=== PATIENT | male | born 2000 | race Caucasian/White ===

== ENCOUNTER 2025-04-13 16:53 | Inpatient (IN) ==
--- NOTE | 2025-04-13 17:10 | Emergency Department Note ---
Impression & Plan Acute hypoxic respiratory failure, Multifocal pneumonia ED Provider Note NAME: GAIL SILVA AGE: 24 SEX: M : 2000 ARRIVES VIA: Ambulance INFORMANT: Patient ED PROVIDER(S): Kosta Ochoa DO CHIEF COMPLAINT: Shortness of breath HPI: Patient is a 24-year-old male with a past medical history of viral URI symptoms around [facility]. He notes he become more short of breath recently. Has gotten worse over the past couple days and specifically today. He feels like his chest is full and tight. Denies any headache or change in vision. Denies any cough or congestion. No belly pain. No nausea, vomiting, or diarrhea. No dysuria, urgency, or frequency. No other exacerbating or remitting factors. Patient denies diabetes, hypertension, hyperlipidemia, CAD, history of sudden at a young age, and smoking. No recent trips or travel. ADDITIONAL HISTORY OBTAINED: Per HPI Chronic Medical/Social Conditions Affecting Care: Per HPI PAST MEDICAL HISTORY:See Below PAST SURGICAL HISTORY:See Below FAMILY HISTORY:See Below SOCIAL HISTORY:See Below HOME MEDICATIONS:See Below ALLERGIES:See Below VITALS:See Below PHYSICAL EXAMINATION: GENERAL: Sitting up in bed, alert, slightly ill-appearing, on nasal cannula EYE EXAM: normal conjunctiva. PERRL and EOM's grossly intact. OROPHARYNX: mucous membranes are moist NECK: supple, no nuchal rigidity, no adenopathy, non-tender LUNGS: Clear to auscultation. Normal chest wall mechanics HEART: no murmurs, S1 normal and S2 normal ABDOMEN: abdomen soft, non-tender, normo-active bowel sounds, no masses, no rebound or guarding. BACK: Back is symmetrical on inspection and there is no deformity, no midline tenderness, no CVA tenderness. UPPER EXTREMITIES: upper extremities are grossly normal. LOWER EXTREMITIES: No pitting edema. NEURO EXAM: Normal sensorium, cranial nerves II-XII grossly intact, normal speech, no gross weakness of arms, no gross weakness of legs. MEDICAL DECISION MAKING: Patient is a 24-year-old male who presents ER he was found to be hypoxic. Was placed on 2 L nasal cannula. 87% on room air. Labs show mild leukocytosis at 13,000. No significant anemia. BMP with a hyponatremia 128. CMP is unremarkable. Mild transaminitis. Troponin negative. Pro-Carlo normal. UA was clean. COVID flu and RSV was negative. Chest x-ray with multifocal pneumonia. CT angio chest was obtained and confirms. Patient was given broad-spectrum IV antibiotics and IV fluids. Updated bedside. Remained on 2 L nasal cannula. Discussed case with the hospitalist for further evaluation management treatment. Consults/Care Managements Discussions: Per [facility] Triage Nursing notes reviewed. Limited review of prior medical records performed Vital Signs: reviewed and remarkable for no significant abnormalities Differential diagnosis: Differential diagnoses includes but is not limited to pneumonia, bronchitis, COPD/Asthma exacerbation, pneumothorax, pulmonary embolism, congestive heart failure, acute coronary syndrome ER treatment provided: See below Diagnostics interpreted by me include EKG and cardiac monitoring as listed below: -Cardiac Monitoring: An order was placed for continuous cardiac monitoring. The monitor shows a rate of 120 with sinus rhythm. -ECG: Sinus tachycardia rate of 116 Normal axis No PVCs QTc 455 -Laboratory studies:Interpreted by me as stated above in MDM and shown below. Imaging studies: Xrays: As interpreted by me: Portable AP upright 1 view of the chest shows no focal infiltrate CTs show: CT angio the chest shows no PEs Procedures:none Critical Care: I have personally spent 33 minutes of critical care time in the direct management of this patient. This includes bedside care, interpretation of diagnostic studies, and testing, discussion with consultants, patient, and family members, and other required patient management activities. This 33 minutes is in excess of all separately billable procedures. Past Med/Surg History Problem List Acute hypoxic respiratory failure (Acute) Multifocal pneumonia (Acute) Sepsis No significant family history No significant past surgical history Social History Smoking Status: Unknown if ever smoked Hx Alcohol Use: No Hx Substance Use: No Preferred Language: Spanish Communication Ability: Effective [place] Guide Required: No Beliefs That Will Affect Care: None Current Living Situation: Other Current Living Situation Comment: with roommates Other Information That Helps Us Care for You: No Feels Safe at Home: Yes Safety Concerns: Feels Safe At This Time Assistive Devices: None Allergies Allergies Allergy/AdvReac Type Severity Reaction Status Date / Time No Known Allergies Allergy Verified 04/13/25 18:20 Home Meds Home Medications Medication Instructions Recorded Confirmed No Known Home Medications 04/09/25 04/13/25 Results & Data (ED) Vital Signs Vital Signs - 24 hr 04/13/25 16:57 04/13/25 16:57 04/13/25 17:01 Temperature 36.4 C L Temperature Source Oral Pulse Rate 117 H 109 H Pulse Rate from SpO2 Sensor Pulse Rhythm Respiratory Rate 22 Respiratory Effort / Characteristics Spontaneous Short of Breath Spontaneous Short of Breath Respiratory Depth Normal Normal Respiratory Pattern Regular Tachypnea Blood Pressure Blood Pressure Mean Pulse Oximetry 90 Oxygen Delivery Method Room Air Oxygen Flow Rate Sepsis Recent Fever Within 48 Hours No Sepsis New/Unexplained Change in Mental Status No Sepsis Action Taken by Nursing Physician Notified 04/13/25 17:01 04/13/25 17:11 04/13/25 17:33 Temperature Temperature Source Pulse Rate 116 H 112 H 115 H Pulse Rate from SpO2 Sensor Pulse Rhythm Regular Respiratory Rate 24 25 H 29 H Respiratory Effort / Characteristics Respiratory Depth Respiratory Pattern Blood Pressure 111/83 123/84 Blood Pressure Mean 88 108 Pulse Oximetry 92 93 92 Oxygen Delivery Method Nasal Cannula Nasal Cannula Oxygen Flow Rate 4 4 Sepsis Recent Fever Within 48 Hours Sepsis New/Unexplained Change in Mental Status Sepsis Action Taken by Nursing 04/13/25 18:00 04/13/25 18:30 04/13/25 19:00 Temperature Temperature Source Pulse Rate 101 H 103 H Pulse Rate from SpO2 Sensor 104 H Pulse Rhythm Respiratory Rate 26 H 23 30 H Respiratory Effort / Characteristics Respiratory Depth Respiratory Pattern Blood Pressure 137/82 141/88 H 142/91 H Blood Pressure Mean 98 112 109 Pulse Oximetry 94 94 93 Oxygen Delivery Method Nasal Cannula Nasal Cannula Nasal Cannula Oxygen Flow Rate 4 4 4 Sepsis Recent Fever Within 48 Hours Sepsis New/Unexplained Change in Mental Status Sepsis Action Taken by Nursing Laboratory Data 04/13/25 18:30 04/13/25 17:20 Lab Results 04/13/25 04/13/25 Range/Units 17:20 18:30 WBC Cancelled 13.13 H RBC Cancelled 4.83 Hgb Cancelled 14.7 Hct Cancelled 40.4 L MCV Cancelled 83.6 MCH Cancelled 30.4 MCHC Cancelled 36.4 H RDW Std Deviation Cancelled 38.0 RDW Coeff of Erma Cancelled 12.5 Plt Count Cancelled 295 MPV Cancelled 10.6 Immature Gran % (Auto) Cancelled 2.3 Neut % (Auto) Cancelled 81.7 Lymph % (Auto) Cancelled 7.2 Scott % (Auto) Cancelled 7.5 Eos % (Auto) Cancelled 1.1 Baso % (Auto) Cancelled 0.2 Neut # (Auto) Cancelled 10.72 H Lymph # (Auto) Cancelled 0.94 L Scott # (Auto) Cancelled 0.99 H Eos # (Auto) Cancelled 0.15 Baso # (Auto) Cancelled 0.03 Immature Gran # (Auto) Cancelled 0.30 H Absolute Nucleated RBC Cancelled Nucleated RBC % (auto) Cancelled Neutrophils % (Manual) Cancelled Band Neutrophils % Cancelled Lymphocytes % (Manual) Cancelled Prolymphocyte % Cancelled Reactive Lymphs % (Man) Cancelled Monocytes % (Manual) Cancelled Eosinophils % (Manual) Cancelled Basophils % (Manual) Cancelled Metamyelocytes % (Man) Cancelled Myelocytes % (Man) Cancelled Promyelocytes % (Man) Cancelled Blast Cells % (Manual) Cancelled Plasma Cell % (Manual) Cancelled Other Cells % Cancelled Nucleated RBC % Cancelled Neutrophils # (Manual) Cancelled Band Neutrophils # Cancelled Total Absolute Neuts Cancelled Lymphocytes # (Manual) Cancelled Prolymphocyte # Cancelled Reactive Lymphs # Cancelled Total Abs Lymphocytes Cancelled Monocytes # (Manual) Cancelled Eosinophils # (Manual) Cancelled Basophils # (Manual) Cancelled Metamyelocytes # (Man) Cancelled Myelocytes # (Manual) Cancelled Promyelocytes # (Man) Cancelled Blast Cells # (Man) Cancelled Plasma Cell # (Manual) Cancelled Other Cells # Cancelled Nucleated RBCs # (Man) Cancelled Hypersegmented Neuts Cancelled Hyposegmented Neuts Cancelled Hypogranular Neuts Cancelled Large Granular Lymphs Cancelled # Lrg Granular Lymphs Cancelled Hairy Cells Cancelled Smudge Cells Cancelled Toxic Granulation Cancelled Toxic Vacuolation Cancelled Dohle Bodies Cancelled Jennifer Rods Cancelled Platelet Estimate Cancelled Hypogranular Platelets Cancelled Giant Platelets Cancelled Platelet Satelliting Cancelled RBC Morphology Cancelled Polychromasia Cancelled Hypochromasia Cancelled Poikilocytosis Cancelled Basophilic Stippling Cancelled Anisocytosis Cancelled Microcytosis Cancelled Macrocytosis Cancelled Spherocytes Cancelled Pappenheimer Bodies Cancelled Sickle Cells Cancelled Target Cells Cancelled Tear Drop Cells Cancelled Ovalocytes Cancelled Stomatocytes Cancelled [place] Bodies Cancelled Echinocytes Cancelled Acanthocytes (Spur) Cancelled Rouleaux Cancelled RBC Agglutinates Cancelled Schistocytes Cancelled Sezary Cell Cancelled Sodium 128 L (136-145) mmol/L Potassium 3.9 (3.5-5.1) mmol/L Chloride 89 L (98-107) mmol/L Carbon Dioxide 22 (21-32) mmol/L Anion Gap 17 H (3-11) BUN 8 (6-23) mg/dl Creatinine 0.63 (0.6-1.4) mg/dl Est Cr Clr Drug Dosing 216.1 ml/min eGFR 136.22 BUN/Creatinine Ratio 12.7 (10-20) Glucose 98 (70-99(Fasting)) mg/dl Osmolality 273 L (280-300) mOsm/kg Lactate 1.3 (0.4-2.0) mmol/L Calcium 9.0 (8.6-10.3) mg/dl Total Bilirubin 1.0 (0.2-1.0) mg/dl AST 90 H (13-39) U/L ALT 121 H (7-52) U/L Alkaline Phosphatase 82 (34-104) U/L Troponin I High Sens 7.7 (0-20) pg/ml Total Protein 8.0 (6.0-8.3) gm/dl Albumin 3.7 (3.4-5.0) gm/dl Globulin 4.3 H (2.5-4.0) gm/dl Albumin/Globulin Ratio 0.9 (0.9-2) Lipase 47 (11-82) U/L Procalcitonin 0.12 (0-0.5) ng/ml SARS-CoV-2 (PCR) NEGATIVE (Negative) Influenza Type A (PCR) Negative (Neg) Influenza Type B (PCR) Negative (Neg) RSV (RT-PCR) Negative (Neg) Blood Parasites ID Cancelled Administered Medications Guaifenesin (Guaifenesin 600 Mg Tabcr) 600 mg PO Q12 [facility] Stop: 05/13/25 21:07 Last Admin: 04/13/25 21:23 Dose: 600 mg Documented By: DLR Lactated Ringer's (Lr) 1,000 mls @ 80 mls/hr IV .[id number] [facility] Stop: 04/14/25 22:07 Last Admin: 12/06/25 21:21 Dose: 80 mls/hr Documented By: DLR Discontinued Medications Sodium Chloride (Nss) 1,000 mls @ 999 mls/hr IV .Q1H1M ONE Stop: 04/13/25 18:05 Last Infusion: 04/13/25 19:20 Dose: Infused Documented By: Admin: 04/13/25 17:32 Dose: 999 mls/hr Documented By: CHERRI Ceftriaxone Sodium (Rocephin) 2,000 mg in 50 mls @ 100 mls/hr IV NOW STA Stop: 04/13/25 17:52 Last Infusion: 04/13/25 19:19 Dose: Infused Documented By: Admin: 04/13/25 18:56 Dose: 100 mls/hr Documented By: RONNIE Azithromycin (Zithromax) 500 mg in 255 mls @ 127.5 mls/hr IV NOW ONE Stop: 04/13/25 19:22 Last Infusion: 04/13/25 22:47 Dose: Infused Documented By: Admin: 04/13/25 19:46 Dose: 127.5 mls/hr Documented By: CAROLINA Parenteral Electrolytes (Plasma-Lyte A Ph 7.4) 1,000 mls @ 999 mls/hr IV .Q1H1M ONE Stop: 04/13/25 18:59 Last Infusion: 04/13/25 20:29 Dose: Infused Documented By: Admin: 04/13/25 19:19 Dose: 999 mls/hr Documented By: ECS Sodium Chloride (Nss) 1,000 mls @ 250 mls/hr IV .Q4H ONE Stop: 04/13/25 23:26 Last Admin: 04/13/25 19:46 Dose: Not Given Documented By: CAROLINA Ioversol (Optiray 320 125ml) 118 ml IV ONCE ONE Stop: 04/13/25 17:46 Last Admin: 04/13/25 17:45 Dose: 118 ml Documented By: DELFIN Imaging Data Radiologist's Impression: Chest CTA 04/13/25 17:05 CT pulmonary angiogram with IV contrast History: Chest pain COMPARISON: None TECHNIQUE: CT angiography of the chest was performed without IV contrast followed by IV contrast, including 3D post processing CTA image reconstruction. Dose reduction techniques were achieved by using automatic exposure control and/or adjustment of mA and/or kV according to patient size and/or use of iterative reconstruction technique. FINDINGS: Diagnostic quality: Adequate There is no evidence for pulmonary embolism. The heart is not enlarged. There is no pericardial effusion. The central tracheobronchial tree is clear. Left lower lobe consolidation. Multifocal centrilobular nodules throughout the lungs elsewhere noted. Reactive mediastinal and bilateral hilar lymphadenopathy, left greater than right. Limited visualized upper abdomen. No destructive osseous changes are seen. IMPRESSION: No evidence for pulmonary embolism. Multifocal pneumonia. Electronically signed by Mahad Keller 04-13-2025 6:35 PM Chest X-Ray 04/13/25 17:05 Chest radiograph, one view History: Chest pain Comparison: None Findings: Single AP view of the chest performed. Patchy consolidative opacity throughout the left lower and left mid lung. Some subtle nodular opacity and bronchial wall thickening also seen in the right upper lung. No pneumothorax. The cardiomediastinal silhouette is within normal limits. Normal pulmonary vascularity. No evidence for lymphadenopathy. No visualized bony or soft tissue abnormality. Impression: Multifocal pneumonia. Electronically signed by Mahad Keller 04-13-2025 5:33 PM Discharge Plan Visit Data Chief Complaint: Shortness of Breath/Dyspnea Stated Complaint: SOB, ED Provider: Kosta Ochoa Discharge Problem: Acute hypoxic respiratory failure, Multifocal pneumonia Patient Disposition: Admitted As Inpatient Condition: Serious Discharge Instructions Interventions: ED Discharge Assessment Last Done: 04/13/25 21:00
[2025-04-13] MEDS: SODIUM CHLORIDE 0.9% 1,000 ML IV ONE ×2 (17:32→19:46)
--- NOTE | 2025-04-13 17:33 | XRay Report ---
Chest radiograph, one view History: Chest pain Comparison: None Findings: Single AP view of the chest performed. Patchy consolidative opacity throughout the left lower and left mid lung. Some subtle nodular opacity and bronchial wall thickening also seen in the right upper lung. No pneumothorax. The cardiomediastinal silhouette is within normal limits. Normal pulmonary vascularity. No evidence for lymphadenopathy. No visualized bony or soft tissue abnormality. Impression: Multifocal pneumonia. Electronically signed by Mhaad Keller 04-13-2025 5:33 PM
[2025-04-13] MEDS: OPTIRAY 320 125ml IV ONE (17:45)
--- NOTE | 2025-04-13 18:12 | History & Physical Report ---
Date of Service April 13, 2025 Assessment & Plan (1) Sepsis: (2) Multifocal pneumonia: Plan: Sepsis Multifocal pneumonia Hypoxia due to above --Chest CTA:No evidence for pulmonary embolism. Multifocal pneumonia. -- Serology negative for COVID-19, influenza, RSV --Normal lactate levels --Procalcitonin level pending -- BioFire pending -- Obtain blood cultures, sputum cultures -- Start on IV Rocephin, azithromycin -- IV fluids -- Check urine for Legionella Nebs as needed Hyponatremia Likely due to dehydration Obtain urine, serum sodium, urine osmolality Monitor sodium levels closely Continue IV fluids Sinus tachycardia Physiological Monitor DVT Px: SCDs for now CODE STATUS Full code I personally interviewed and examined the patient at bedside. Personally reviewed blood work and imaging studies and discussed with the ED physician. I spent a total [id number] coordinating, documenting, and providing care for this patient. History of Present Illness Chief Complaint: Cough, Shortness of breath Primary Care Provider: NO PCP Patient is a 24-year-old male with no significant past medical history, currently not on any medications presents with history of worsening generalized weakness, cough, dyspnea since evening. Patient states that he noticed to have generalized weakness associated with fever and chills on day of and gradually got worse from then. Patient reports poor sleep. He admits to have known expectorant cough associated with dyspnea both at rest and on exertion associated with palpitations. He also admits to have some dizziness. Denies any history of chest pain, pedal edema, diaphoresis, hemop tysis, headache, nausea, vomiting, abdominal pain, blood in stools, diarrhea, dysuria, hematuria, sick contact. Allergies Allergy/AdvReac Type Severity Reaction Status Date / Time No Known Allergies Allergy Verified 04/13/25 18:20 Home Medications Medication Instructions Recorded Confirmed Type No Known Home Medications 04/09/25 04/13/25 History Past Med/Surg History Problem List Multifocal pneumonia Sepsis No significant family history No significant past surgical history Social History Smoking Status: Never smoker Hx Alcohol Use: No Hx Substance Use: No Feels Safe at Home: Yes Review of Systems Review of Systems: All systems reviewed & are unremarkable except as noted in Subjective Physical Exam Physical Exam: Physical Exam: Vitals signs as noted above General Appearance:Moderately built and nourished, no apparent distress Head: normocephalic, Atraumatic Eyes: normal inspection, EOMI Neck: supple, Trachea midline Respiratory/Chest: Decreased breath sounds, CTA, No accessory muscle use, tachypnea Cardiovascular: S1, S2, No murmur, tachycardia Abdomen/GI:Soft, Non tender, Bowel sounds present Extremities/Musculoskeletal:normal inspection, no edema Neurologic/Psych:AAOX3, grossly no focal neurological deficits Skin: normal color, warm Results & Data Results & Data Vital Signs (Past 12 Hours) Vital Signs Temp Pulse Resp Pulse Ox O2 Del Method O2 Flow Rate 04/13/25 17:11 112 H 25 H 93 Nasal Cannula 4 04/13/25 17:01 109 H 04/13/25 16:57 36.4 C L 117 H 22 90 Room Air Laboratory Results Short CBC 04/13/25 04/13/25 Range/Units 17:20 18:30 WBC Cancelled 13.13 H Hgb Cancelled 14.7 Hct Cancelled 40.4 L Plt Count Cancelled 295 BMP 04/13/25 17:20 Sodium 128 L Potassium 3.9 Chloride 89 L Carbon Dioxide 22 BUN 8 Creatinine 0.63 Glucose 98 Calcium 9.0 Liver Function 04/13/25 Range/Units 17:20 Total Bilirubin 1.0 (0.2-1.0) mg/dl AST 90 H (13-39) U/L ALT 121 H (7-52) U/L Alkaline Phosphatase 82 (34-104) U/L Albumin 3.7 (3.4-5.0) gm/dl Diagnostic Findings --Chest CTA: No evidence for pulmonary embolism. Multifocal pneumonia. ECG Additional Comments: --EKG: Sinus tachycardia, possible left atrial enlargement, QTc 455.
--- NOTE | 2025-04-13 18:36 | CT Scan Report ---
CT pulmonary angiogram with IV contrast History: Chest pain COMPARISON: None TECHNIQUE: CT angiography of the chest was performed without IV contrast followed by IV contrast, including 3D post processing CTA image reconstruction. Dose reduction techniques were achieved by using automatic exposure control and/or adjustment of mA and/or kV according to patient size and/or use of iterative reconstruction technique. FINDINGS: Diagnostic quality: Adequate There is no evidence for pulmonary embolism. The heart is not enlarged. There is no pericardial effusion. The central tracheobronchial tree is clear. Left lower lobe consolidation. Multifocal centrilobular nodules throughout the lungs elsewhere noted. Reactive mediastinal and bilateral hilar lymphadenopathy, left greater than right. Limited visualized upper abdomen. No destructive osseous changes are seen. IMPRESSION: No evidence for pulmonary embolism. Multifocal pneumonia. Electronically signed by Mahad Keller 04-13-2025 6:35 PM
[2025-04-13 18:51] LABS: Hematocrit (blood only) 40.4 % (42.0-52.0); Hemoglobin 14.7 g/dL (14.0-18.0); Immature Granulocytes # (auto) 0.30 K/uL (0.01-0.20); Immature Granulocytes % (auto) 2.3 %; Mean Corpuscular Hemoglobin 30.4 pg (25.0-34.0); Mean Corpuscular Volume 83.6 fL (80.0-100.0); Platelet Count 295 K/uL (130-400); RDW Standard Deviation 38.0 fL (36.4-46.3); Red Blood Count 4.83 M/uL (4.70-6.10); White Blood Count 13.13 K/ul (4.8-10.8)
[2025-04-13] MEDS: cefTRIAXone SODIUM 2,000 MG/50 ML BAG IV STA (18:56)
[2025-04-13] MEDS: PLASMA-LYTE A 1,000 ML IV ONE (19:19)
[2025-04-13] MEDS: AZITHROMYCIN 500 MG/255 ML BAG IV ONE (19:46)
[2025-04-13 19:54] LABS: Influenza A virus by PCR Negative (Neg); Influenza B virus by PCR Negative (Neg); SARS CoV2 RNA(COVID-19) Ceph NEGATIVE (Negative)
[2025-04-13 20:12] LABS: Albumin Level 3.7 gm/dl (3.4-5.0); Anion Gap 17.0 (3-11); Bilirubin,Total 1.0 mg/dl (0.2-1.0); Calcium 9.0 mg/dl (8.6-10.3); Carbon Dioxide 22.0 mmol/L (21-32); Chloride 89.0 mmol/L (98-107); Potassium 3.9 mmol/L (3.5-5.1); Sodium 128.0 mmol/L (136-145)
[2025-04-13 20:18] LABS: Alanine Aminotransferase 121.0 U/L (7-52); Albumin Globulin Ratio 0.9 (0.9-2); Alkaline Phosphatase 82.0 U/L (34-104); Blood Urea Nitrogen 8.0 mg/dl (6-23); Creatinine Clr Calc Pharmacy 216.1 ml/min; Globulin 4.3 gm/dl (2.5-4.0); Glucose 98.0 mg/dl (70-99(Fasting)); Lipase 47.0 U/L (11-82); Total Protein 8.0 gm/dl (6.0-8.3)
[2025-04-13] MEDS ORDERED: POLYETHYLENE (MIRALAX) 17 GM PACK PO PRN (21:08)
[2025-04-13] MEDS ORDERED: ACETAMINOPHEN 325 MG TAB PO PRN (21:08)
[2025-04-13] MEDS ORDERED: LEVALBUTEROL HCL 0.63 MG/3 ML NEB NEB PRN (21:08)
[2025-04-13] MEDS ORDERED: ONDANSETRON INJ 2 MG/ML 2 ML VIAL IV PRN (21:08)
[2025-04-13] MEDS: LACTATED RINGER'S 1,000 ML IV SCH (21:21)
[2025-04-13] MEDS: guaiFENesin 600 MG TABCR PO SCH (21:23)
[2025-04-13 23:28] LABS: Appearance Urine Clear (Clear); Bacteria Urine Automated None Seen (None Seen); Cast Urine Automated 0-2 /lpf (0-2); Epithelial Cell Urine Auto 0-2 /hpf (0-2); Glucose Urine UA Negative (Negative); WBC Urine Automated 0-5 /hpf (0-5)
[2025-04-14] MEDS: MELATONIN 3 MG TAB PO PRN (01:50)
[2025-04-14 06:20] LABS: Hematocrit (blood only) 38.2 % (42.0-52.0); Hemoglobin 13.3 g/dL (14.0-18.0); Mean Corpuscular Hemoglobin 29.4 pg (25.0-34.0); Mean Corpuscular Volume 84.5 fL (80.0-100.0); Platelet Count 294 K/uL (130-400); RDW Standard Deviation 38.5 fL (36.4-46.3); Red Blood Count 4.52 M/uL (4.70-6.10); White Blood Count 12.57 K/ul (4.8-10.8)
[2025-04-14 06:38] LABS: Alanine Aminotransferase 90.0 U/L (7-52); Albumin Globulin Ratio 1.0 (0.9-2); Albumin Level 3.1 gm/dl (3.4-5.0); Alkaline Phosphatase 63.0 U/L (34-104); Anion Gap 9.0 (3-11); Bilirubin,Total 0.8 mg/dl (0.2-1.0); Blood Urea Nitrogen 6.0 mg/dl (6-23); Calcium 7.9 mg/dl (8.6-10.3); Carbon Dioxide 26.0 mmol/L (21-32); Chloride 96.0 mmol/L (98-107); Creatinine Clr Calc Pharmacy 279.7 ml/min; Globulin 3.0 gm/dl (2.5-4.0); Glucose 105.0 mg/dl (70-99(Fasting)); Magnesium 2.2 mg/dl (1.7-2.4); Potassium 3.9 mmol/L (3.5-5.1); Sodium 131.0 mmol/L (136-145); Total Protein 6.1 gm/dl (6.0-8.3)
--- NOTE | 2025-04-14 08:41 | Pulmonary Consultation ---
Date of Consultation April 14, 2025 Assessment & Plan (1) Acute hypoxic respiratory failure: (2) Mycoplasma pneumonia: Plan Patient has multifocal pneumonia. Mycoplasma pneumonia detected on BioFire. Patient has been initiated on azithromycin and Rocephin. Given the severity of the pneumonia I would recommend continuing azithromycin. Can continue Rocephin or switch to Augmentin to complete total of 5 days of therapy. Continue oxygen therapy, wean as tolerated keep saturation approximately 90%. Recommend pulmonary toilet, head of bed elevated. Patient is tolerating diet well, can stop IV fluids. Recommend follow-up imaging in the outpatient setting in 6 to 8 weeks with x- ray. Patient may follow-up with pulmonary if desired in the outpatient setting in approximately 4 weeks. Thank you for this consult. Pulmonary will sign off at this time. Please call directly with any questions. History of Present Illness Reason for Consultation: Multifocal pneumonia Requesting Physician: Will Andrew MD Attending Physician: Will Andrew MD History of Present Illness Patient is a 24-year-old male with no significant past medical history. The patient presented to the emergency department 04/13/2025 with worsening weakness, cough and dyspnea that had started around Thanksgiving time. The patient initially had fevers and chills along with weakness which has progressed since the onset of his symptoms. He endorsed a cough and dyspnea along with palpitations. Also endorsed some dizziness. No known sick contacts. He is a lifetime non-smoker. Labs on presentation showed mild leukocytosis at 13. Sodium was low at 128. Mild transaminitis with AST 90 and ALT 121. Respiratory viral PCR was negative for COVID, influenza A/B and RSV. Legionella urine antigen is pending. BioFire is pending. The patient was noted to have elevated anion gap at 17 along with 2+ ketones in his urine. His glucose was 98. Lactic was normal. Sputum sample was sent which is showing gram-positive cocci and bacilli on Gram stain. Imaging of the chest with x-ray was obtained which showed a left sided infiltrate in the mid and lower lung zones as well as subtle nodular opacities on the right. Imaging of the chest with CT PE shows a dense pneumonia in the left lower lobe with additional patchy nodular GGO's and tree-in-bud densities bilaterally along with reactive lymphadenopathy. No PE was identified. Patient was started on azithromycin and Rocephin along with bronchodilators. Pulmonary has been consulted for multifocal pneumonia. The patient states that he attended family [place], he arrived a few days earlier for [place] and was feeling well at that time. On [place] he started having some fevers which resolved but then he started developing shortness of breath, chest heaviness, nonproductive cough and overall malaise and weakness. The patient went to express care but was not prescribed any antibiotics. He denies any known sick contacts he says that no one else was sick at [facility] or has become sick he was at [facility]. He lives with 2 roommates, neither of them have been sick. He works at a [employer], no one at work has been sick and he is not aware of sick contacts. He denies any recent travel, he traveled to [facility] in 2018 and was there for 1 week but no other foreign travel. Lives in a house with central air, has lived in the same home since December with 2 roommates. He does not smoke or vape. There are no pets in his home. There or 2 dogs in his family home with [place] but no other birds or pets. Allergies Allergy/AdvReac Type Severity Reaction Status Date / Time No Known Allergies Allergy Verified 04/13/25 18:20 Home Medications Medication Instructions Recorded Confirmed Type No Known Home Medications 04/09/25 04/13/25 History Patient History Social History Smoking Status: Unknown if ever smoked Hx Alcohol Use: No Hx Substance Use: No Preferred Language: Syriac Communication Ability: Effective Mail Manager Required: No Beliefs That Will Affect Care: None Current Living Situation: Other Current Living Situation Comment: with roommates Other Information That Helps Us Care for You: No Feels Safe at Home: Yes Safety Concerns: Feels Safe At This Time Assistive Devices: None Review of Systems Review of Systems: A 12 point review of systems was obtained in detail. Negative except as noted in HPI. Physical Exam Physical Exam: Physical examination: General: Well-appearing, well-nourished and not in acute distress. HEENT: Normocephalic, atraumatic. Extraocular movements intact. Sclera are nonicteric. No JVD appreciated. Skin: Warm and dry. No rashes appreciated. No jaundice appreciated. Cardiovascular: Heart is a regular rate and rhythm, no murmurs appreciated on my exam. No significant lower extremity edema. Lungs: Coarse breath sounds, no wheezing, on nasal cannula, diminished at left base. Rhonchi appreciated left. Abdomen: Nondistended, nontender to palpation. No masses appreciated. Musculoskeletal: Normal muscle mass and tone. No gross joint deformity abnormalities. No effusions appreciated. Neurologic: Awake and alert, oriented. CN II through XII are grossly intact. Speech is fluent. Nonfocal exam. Psychiatric: Appropriate cooperative during my exam. Results & Data Results & Data Vital Signs (Past 12 Hours) Vital Signs Temp Pulse Pulse Pulse Resp BP Pulse Ox 04/14/25 07: 36.8 C 99 H 21 123/78 95 04/14/25 07:00 104 H 04/14/25 03:43 37.8 C H 102 H 24 125/75 95 04/13/25 23:39 135 H 04/13/25 23:16 37.7 C H 108 H 19 114/63 92 04/13/25 22:00 04/13/25 21:10 36.9 C 119 H 18 106/64 91 04/13/25 21:00 O2 Del Method O2 Flow Rate 04/14/25 07:25 Nasal Cannula 4 04/14/25 07:00 04/14/25 03:43 Nasal Cannula 4 04/13/25 23:39 04/13/25 23:16 Nasal Cannula 4 04/13/25 22:00 Nasal Cannula 3 04/13/25 21:10 Nasal Cannula 3 04/13/25 21:00 Nasal Cannula 4 Laboratory Results Significant hyponatremia and leukocytosis. Procalcitonin is low. Negative for influenza, RSV and COVID. Diagnostic Findings Chest x-ray and CT imaging reviewed independently by myself. There is a very dense left lower lobe pneumonia. Bilateral centrilobular nodular infiltrates and GGO's with tree-in-bud changes bilaterally. PG Care Time/CCT Total # of Minutes Spent Total Time Spent with Patient: Total time spent is greater than 50% in coordination of care (as documented) at patient's floor/unit and/or counseling patient: [place] [address] IN/OBS CONSULT LVL 4,60M Patient Type New Medical Decision Making Moderate Complexity Diagnoses Acute hypoxic respiratory failure J96.01 Mycoplasma pneumonia J15.7
[2025-04-14] MEDS ORDERED: AZITHROMYCIN 250 MG TAB PO SCH (09:00)
[2025-04-14] MEDS: AZITHROMYCIN 250 MG TAB PO SCH (09:09)
[2025-04-14 09:15] LABS: Chlamydia pneumoniae PCR Not Detected (NotDetected); Coronavirus 229E PCR Not Detected (NotDetected); Coronavirus CoV-2 (COVID19)PCR Not Detected (NotDetected); Coronavirus HKU1 PCR Not Detected (NotDetected); Coronavirus NL63 PCR Not Detected (NotDetected); Coronavirus OC43PCR Not Detected (NotDetected); Human Metapneumovirus PCR Not Detected (NotDetected); Parainfluenza Virus 1 PCR Not Detected (NotDetected); Parainfluenza Virus 2 PCR Not Detected (NotDetected); Parainfluenza Virus 3 PCR Not Detected (NotDetected); Parainfluenza Virus 4 PCR Not Detected (NotDetected); Respiratory Syncytial VirusPCR Not Detected (NotDetected); Rhinovirus/Enterovirus PCR Not Detected (NotDetected)
--- NOTE | 2025-04-14 10:22 | Hospitalist Progress Note ---
Date of Service April 14, 2025 Assessment & Plan (1) Sepsis: (2) Multifocal pneumonia: Plan: Multifocal pneumonia Mycoplasma pneumoniae infection Acute hypoxic respiratory failure Patient presents with fever, shortness of breath ongoing for a week. CTA chest shows multifocal pneumonia; no PE Respiratory viral panel positive for mycoplasma pneumonia this morning Continue on ceftriaxone and azithromycin Wean oxygen as tolerated Bronchodilators as needed pulm is consulted for any further recommendation Hyponatremia Serum sodium of 128 on admission; Improved to 131 with IV hydration Urine osmolarity of 273, urine sodium of 26 Continue IV fluids for now Monitor BMP daily DVT Px: SCDs for now CODE STATUS Full code Time spent evaluating patient, direct bedside care, chart review, placing orders, interpretation of diagnostic studies, discussion with consultants, patient, and family members, as well as other required patient management activities is 50 minutes Please note the above document was generated using voice recognition software. It may contain grammatical, syntax or spelling errors. Any formal questions or concerns about the content, text or information contained within the body of this dictation should be directly addressed to the provider for clarification Admission and Anticipated Discharge Date Admission Date: April 13, 2025 Subjective Patient seen and examined at bedside. He reports that he feels similar to yesterday. Still requiring 4 L of oxygen by nasal cannula.. Had low-grade elevation in temperature. Review of Systems Review of Systems: All systems reviewed & are unremarkable except as noted in Subjective Physical Exam Physical Exam: Constitutional: WD/WN, vitals as above, NAD, sitting up in bed, pleasant, conversing easily Respiratory: Slightly decreased urine entry at bases. Cardiovascular: RRR, no murmur, no edema Vessels: no JVD or carotid bruit Chest: normal inspection of chest Abdomen: normal bowel sounds, soft, nontender, no hepatosplenomegaly Musculoskeletal: no cyanosis or clubbing, extremities motor strength 5/5 Skin: no rashes, warm and dry normal turgor Neurologic: PERRL, EOMI, accommodation nl, no face palsy, no dysarthria CN's II- XI intact bilaterally and moves all extremities Psychiatric: A+Ox3, euthymic affect Results & Data Results & Data Vital Signs (Past 12 Hours) Vital Signs Temp Pulse Pulse Resp BP Pulse Ox O2 Del Method 04/14/25 07:25 36.8 C 99 H 21 123/78 95 Nasal Cannula 04/14/25 07:00 104 H 04/14/25 03:43 37.8 C H 102 H 24 125/75 95 Nasal Cannula 04/13/25 23:39 135 H 04/13/25 23:16 37.7 C H 108 H 19 114/63 92 Nasal Cannula O2 Flow Rate 04/14/25 07:25 4 04/14/25 07:00 04/14/25 03:43 4 04/13/25 23:39 04/13/25 23:16 4
[2025-04-14] MEDS: AZITHROMYCIN 250 MG TAB PO ONE (12:40)
[2025-04-14] MEDS ORDERED: cefTRIAXone SODIUM 2,000 MG/50 ML BAG IV SCH (18:00)
--- NOTE | 2025-04-15 01:28 | Electrocardiogram Report ---
Test Reason : Blood Pressure : */* mmHG Vent. Rate : 116 BPM Atrial Rate : 116 BPM P-R Int : 158 ms QRS Dur : 86 ms QT Int : 328 ms P-R-T Axes : 68 70 61 degrees QTcB Int : 455 ms Sinus tachycardia Otherwise normal ECG No previous ECGs available Confirmed by Shaila Ramirez (Demetri) on 04/15/2025 1:28:46 AM Referred By: REFERRED SELF Confirmed By: Shaila Ramirez
[2025-04-15 06:26] LABS: Hematocrit (blood only) 41.2 % (42.0-52.0); Hemoglobin 13.9 g/dL (14.0-18.0); Mean Corpuscular Hemoglobin 29.4 pg (25.0-34.0); Mean Corpuscular Volume 87.3 fL (80.0-100.0); Platelet Count 163 K/uL (130-400); RDW Standard Deviation 40.8 fL (36.4-46.3); Red Blood Count 4.72 M/uL (4.70-6.10); White Blood Count 9.32 K/ul (4.8-10.8)
[2025-04-15 06:41] LABS: Anion Gap 9.0 (3-11); Blood Urea Nitrogen 4.0 mg/dl (6-23); Calcium 8.4 mg/dl (8.6-10.3); Carbon Dioxide 28.0 mmol/L (21-32); Chloride 100.0 mmol/L (98-107); Creatinine Clr Calc Pharmacy 291.3 ml/min; Glucose 99.0 mg/dl (70-99(Fasting)); Potassium 4.0 mmol/L (3.5-5.1); Sodium 137.0 mmol/L (136-145)
[2025-04-15 06:52] LABS: Immature Granulocytes # (auto) 0.22 K/uL (0.01-0.20); Immature Granulocytes % (auto) 2.4 %; Polychromasia 1+; Toxic Granulation 1+
--- NOTE | 2025-04-15 08:48 | Electrocardiogram Report ---
Test Reason : Blood Pressure : */* mmHG Vent. Rate : 98 BPM Atrial Rate : 98 BPM P-R Int : 160 ms QRS Dur : 88 ms QT Int : 362 ms P-R-T Axes : 59 70 55 degrees QTcB Int : 462 ms Normal sinus rhythm Normal ECG When compared with ECG of 13-Apr-2025 16:57, (unconfirmed) No significant change was found Confirmed by Shaila Ramirez (Demetri) on 04/15/2025 8:47:54 AM Referred By: REFERRED SELF Confirmed By: Shaila Ramirez
[2025-04-15] MEDS ORDERED: AMOXICILLIN/CLAVULANATE 875 MG TAB PO SCH ×2 (09:10→17:00)
[2025-04-15] MEDS: cefTRIAXone SODIUM 2,000 MG/50 ML BAG IV SCH (09:52)
--- NOTE | 2025-04-15 13:08 | Hospitalist Progress Note ---
Date of Service April 15, 2025 Assessment & Plan (1) Sepsis: (2) Multifocal pneumonia: Plan: Multifocal pneumonia Mycoplasma pneumoniae infection Acute hypoxic respiratory failure Patient presents with fever, shortness of breath ongoing for a week. CTA chest shows multifocal pneumonia; no PE Respiratory viral panel positive for mycoplasma pneumonia Plan to continue antibiotic for total of 5 days as per recommendation by pulmo nology. Wean oxygen as tolerated Bronchodilator as needed Incentive spirometry Will need repeat chest x-ray in 4 to 6 weeks to ensure resolution. Hyponatremia Serum sodium of 128 on admission; Improved with IV hydration Discussed plan of care with patient's father at bedside. Answered questions/queries CODE STATUS Full code Time spent evaluating patient, direct bedside care, chart review, placing orders, interpretation of diagnostic studies, discussion with consultants, patient, and family members, as well as other required patient management activi ties is 50 minutes Please note the above document was generated using voice recognition software. It may contain grammatical, syntax or spelling errors. Any formal questions or concerns about the content, text or information contained within the body of this dictation should be directly addressed to the provider for clarification Admission and Anticipated Discharge Date Admission Date: April 13, 2025 Subjective Patient seen and examined at bedside. He reports that he is feeling much better today. He no longer has fever. His appetite has improved. Shortness of breath has gradually improved as well. Review of Systems Review of Systems: All systems reviewed & are unremarkable except as noted in Subjective Physical Exam Physical Exam: Constitutional: WD/WN, vitals as above, NAD, sitting up in bed, pleasant, conversing easily Respiratory: Slightly decreased air entry at bases. Cardiovascular: RRR, no murmur, no edema Vessels: no JVD or carotid bruit Chest: normal inspection of chest Abdomen: normal bowel sounds, soft, nontender, no hepatosplenomegaly Musculoskeletal: no cyanosis or clubbing, extremities motor strength 5/5 Skin: no rashes, warm and dry normal turgor Neurologic: PERRL, EOMI, accommodation nl, no face palsy, no dysarthria CN's II- XI intact bilaterally and moves all extremities Psychiatric: A+Ox3, euthymic affect Results & Data Results & Data Vital Signs (Past 12 Hours) Vital Signs Temp Pulse Pulse Pulse Resp BP Pulse Ox 04/15/25 11:31 36.3 C L 99 H 99 H 22 107/69 92 12/08/25 10:32 14 93 04/15/25 09:37 74 04/15/25 08:24 36.9 C 98 H 22 117/75 92 04/15/25 08:01 04/15/25 02:39 36.8 C 93 H 20 121/74 95 O2 Del Method O2 Flow Rate 04/15/25 11:31 Room Air 04/15/25 10:32 Nasal Cannula 2 04/15/25 09:37 04/15/25 08:24 Nasal Cannula 3 04/15/25 08:01 Nasal Cannula 3 04/15/25 02:39 Nasal Cannula 3
[2025-04-16 03:15] VITALS: BP 113/74; TEMP 97.9
[2025-04-16] MEDS: AZITHROMYCIN 250 MG TAB PO SCH (08:10)
[2025-04-16] MEDS ORDERED: INFLUENZA VACC TS2025-26(65y+)/PF (IIV3) 0.5mL Syr IM ONE (09:25)
[2025-04-16] MEDS ORDERED: INFLUENZA VACC TS2025-26(6m+)/PF (IIV3) 0.5mL Syr IM ONE (10:00)
[2025-04-16 10:14] VITALS: PULSE 99; RESP 18; O2SAT 92
[2025-04-16] MEDS: INFLUENZA VACC TS2025-26(6m+)/PF (IIV3) 0.5mL Syr IM ONE (10:21)
== END 2025-04-16 10:56 | disposition home or self-care (01) | DRG 871 ==
LOC: ED 16:53 → 2S 19:27 → SUATTDRO 19:27 → 2S 21:00